=== PATIENT | female | born 1990 | race Two or more races ===

== ENCOUNTER 2023-12-20 12:31 | Emergency (ER) | payer OTHER ==
[~2023-12-20] VITALS: Ht 162.6 cm; Wt 88.9 kg
[2023-12-20] MEDS ORDERED: IBUprofen 20 MG/ML BLIST.PACK (5ML) PO STA (13:04)
[2023-12-20] MEDS ORDERED: GUAIFENESIN 200 MG/10 ML BLIST.PACK PO STA (13:04)
[2023-12-20] MEDS ORDERED: ONDANSETRON HCL 2 MG/ML VIAL IM STA (13:05)
[2023-12-20 13:45] LABS: HEMATOCRIT 39.6 % (36.0-45.00); HEMOGLOBIN 13.8 g/dL (12.0-15.00); MEAN CELL VOLUME 92.7 fL (80.00-100.00); MEAN CORPUSCULAR HEMOGLOBIN 32.4 pg (27.00-32.0); MEAN CORPUSCULAR HGB CONC 34.9 g/dl (32.0-36.0); PLATELET COUNT 232 K/uL (150-450); RED BLOOD COUNT 4.27 M/uL (4.00-6.00)
== END 2023-12-20 15:02 | disposition home or self-care (01) ==
LOC: ER 12:32
PROVIDERS: General Practice
DX: J06.9 Acute upper respiratory infection, unspecified (principal); Z20.822 Contact with and (suspected) exposure to COVID-19; Z88.8 Allergy status to other drugs, medicaments and biological substances